=== PATIENT | male | born 1965 | race Two or more races ===

== ENCOUNTER 2021-07-27 10:22 | Emergency (ER) | payer SELFPAY ==
[~2021-07-27] VITALS: Ht 170.2 cm; Wt 74.0 kg
[2021-07-27] MEDS: ACETAMINOPHEN 325MG TABLET PO ONE ×2 (12:03→12:12)
[2021-07-27] MEDS ORDERED: THIAMINE HCL 100 MG/1 ML 2ML VIAL IM SCH (14:30)
[2021-07-27 18:30] VITALS: BP 128/77
== END 2021-07-27 18:30 | disposition home or self-care (01) ==
LOC: ER 10:32
DX: S02.2XXA Fracture of nasal bones, initial encounter for closed fracture (principal); F10.229 Alcohol dependence with intoxication, unspecified; Y90.9 Presence of alcohol in blood, level not specified; R03.0 Elevated blood-pressure reading, without diagnosis of hypertension; W01.0XXA Fall on same level from slipping, tripping and stumbling without subsequent striking against object, initial encounter; Y93.89 Activity, other specified; Y92.89 Other specified places as the place of occurrence of the external cause
CPT/HCPCS: 70450; 70486; 96372; 99285; J3411